=== PATIENT | female | born 1930 | race Caucasian/White ===

== ENCOUNTER → 2017-10-14 | Outpatient (CLI) | payer MEDICARE ==
[~2017-10-14] MED LIST: B COMPLEX-VITA1 EACH; ELEMENTAL CALC600 MG; GABAPENTIN; LEVOTHYROXIN0.112 M1; LOPRESSOR; MINIPRIN81 MG; MYLANTA TABLET1 TA1 PO; NEURONTIN 300M300 M2; NITROSTAT0.4 MG; NORCO 5-325 TA1 EACH PO; PREMARIN0.625 MG; ROSADAN45 GM; SYNTHROID; TOPROL XL25 MG; VITAMIN D31000 UNI2
== END ==
LOC: M.ULTRA 10-12 11:00 → M.CT 10-12 11:00 → M.ULTRA 13:00 → M.CT 13:30
DX: I65.23 Occlusion and stenosis of bilateral carotid arteries (principal); I63.511 Cerebral infarction due to unspecified occlusion or stenosis of right middle cerebral artery; G31.9 Degenerative disease of nervous system, unspecified